=== PATIENT | female | born 1950 | race Caucasian/White ===

== ENCOUNTER 2018-10-02 01:37 | Emergency (ER) | payer MEDICARE, OTHER ==
[2014-02-20 08:23] VITALS: Wt 113.4 kg
[~2018-10-02 01:37] MED LIST: BIS10S PR; ENO100I SC; IBUP-136 PO; MOM PO; MULT-1381 PO; NONE CURRENTLY; PAIN MED; PER PO; RIV10 PO; RIVA20TA PO; WARF3TAB36 PO; [UNRECOGNIZED DRUG - OTHER] PO; [UNRECOGNIZED DRUG - OTHER] PO
--- NOTE | 2018-10-02 02:02 | ER Report ---
History and Physical Time Seen By MD: 01:50 Hx. of Stated Complaint: PT REPORTS NOSEBLEED THAT STARTED LAST NIGHT AT 22:00. HPI/ROS CHIEF COMPLAINT: Nosebleed HISTORY OF PRESENT ILLNESS: 68-year-old female presents ambulatory to the ER complaining of nosebleed out of her right nose since 10 PM last night. 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 Patient reports falling 1 week ago and injuring her nose. It bled for a short period of time in has not bled for 4 days. Tonight she blew her nose retiring to bed. The bleeding started. She's been unable to stop it. Her blood pressure is elevated on arrival. REVIEW OF SYSTEMS: Respiratory: No cough, no dyspnea. Cardiovascular: No chest pain, no palpitations. Gastrointestinal: No vomiting, no abdominal pain. Musculoskeletal: No back pain. Allergies: Coded Allergies: Penicillins (Verified Allergy, Intermediate, RASH, 10/02/18) hydromorphone (Unverified Adverse Reaction, Intermediate, NAUSEA AND VOMITING, 10/02/18) Home Meds Reported Medications Atorvastatin Calcium (LIPITOR) 40 Mg Tablet, 1 TAB PO HS, TAB 10/02/18 Rivaroxaban 20 Mg (XARELTO 20 MG) 20 Mg Tablet, 20 MG PO QDAY 02/11/14 Discontinued Reported Medications Rivaroxaban 20 Mg (XARELTO 20 MG) 20 Mg Tablet, 20 MG PO DAILY 02/20/14 Oxycodone/Acetaminophen (OXYCODONE/ACETAMINOPHEN 5MG/325 MG) 5 Mg/325 Mg Tab, 1- 2 TAB PO Q4-6H PRN for PAIN, #50 TAB 02/20/14 Multivitamin (ONCE DAILY) 1 Each Tablet, 1 EACH PO 02/11/14 Discontinued Scripts [Magnesium Hydroxide] 30 ML SUSP No Conflict Check, 30 ML PO Q8H PRN for CONSTIPATION Prov:ANTONELLA GUZMAN MD 02/20/14 Past Medical/Surgical History History of DVT, left colon and coagulation with Xarelto, hypertension Total right knee replacement Reviewed Nurses Notes: Yes Old Medical Records Reviewed: Yes Hx Smoking: No Hx Substance Use Disorder: No Hx Alcohol Use: No Constitutional Vital Sign - Last 24 Hours 10/02/18 10/02/18 10/02/18 10/02/18 01:43 01:43 02:07 02:22 Temp 98.4 Pulse 96 69 70 Resp 18 B/P (MAP) 169/96 (120) 169/96 Pulse Ox 94 93 94 O2 Delivery Room Air 10/02/18 10/02/18 10/02/18 10/02/18 02:37 02:38 02:43 02:58 Pulse 64 67 67 B/P (MAP) 131/82 (98) Pulse Ox 90 90 94 10/02/18 10/02/18 03:00 03:13 Pulse 69 B/P (MAP) 136/84 (101) Pulse Ox 94 Physical Exam Vital signs stable, slightly elevated blood pressure, afebrile, pulse ox normal General Appearance: The patient is alert, has no immediate need for airway protection and no current signs of toxicity. HEENT: Pupils equal and round no injection. TMs normal, right nares with emma bleeding, oropharynx with blood tainted posterior oropharynx Respiratory: Chest is non tender, lungs are clear to auscultation. Cardiac: regular rate and rhythm Gastrointestinal: Abdomen is soft and non tender, no masses, bowel sounds normal. Musculoskeletal: Neck: Neck is supple and non tender. Extremities have full range of motion and are non tender. Skin: No rashes or lesions. DIFFERENTIAL DIAGNOSIS: After history and physical exam differential diagnosis was considered for epistaxis, excessive anti-coagulation, nasal injury, hypertension Medical Decision Making ED Course/Re-evaluation ED Course Patient was admitted to an examination room. H&P was done. The differential diagnoses was considered. On clinical examination. Patient has bleeding from her right nares. Patient is on Zarontin all. Hemostasis will likely only be obtained with packing. A Rhino Rocket was inserted in the right nares and infiltrated with TX a 500 mg. Was taped to her right cheek. After approximately 30 minutes. Her blood pressure was rechecked and down significantly. Her epistaxis is controlled. She is advised to leave the packing in place for 3 days. Patient advised to follow-up with primary care to have it removed in 3 days or return to the ER. Decision to Disposition Date: Oct 02, 2018 Decision to Disposition Time: 02:06 Depart Departure Latest Vital Signs Vital Signs Date Time Temp Pulse Resp B/P (MAP) Pulse Ox O2 Delivery O2 Flow Rate FiO2 10/02/18 03:13 69 94 10/02/18 03:00 136/84 (101) 10/02/18 01:43 98.4 18 Room Air Impression: Primary Impression: Epistaxis Additional Impressions: Chronic anticoagulation Hypertension Condition: Improved Disposition: HOME OR SELF-CARE Patient Instructions: Nosebleed (ED) Additional Instructions: Leave nasal packing in for 3 days Follow-up with primary care to have it removed or urgent care,, you may also come to the emergency room to have your packing removed Problem Qualifiers Additional Impressions: Hypertension Hypertension type: essential hypertension Qualified Codes: I10 - Essential (primary) hypertension ARPAN LYON DO Oct 02, 2018 02:02
[2018-10-02] MEDS ORDERED: ATOR40TA24 PO (02:05)
[2018-10-02] MEDS ORDERED: ENT KIT ONE ×2 (02:10)
[2018-10-02] MEDS ORDERED: TRANEXAMIC AC 1000 MG/10ML SDV ONE ×2 (02:10)
[2018-10-02 03:00] VITALS: BP 136/84
== END 2018-10-02 03:22 | disposition home or self-care (01) ==
LOC: ER 02:05
DX: R04.0 Epistaxis (principal); Z79.01 Long term (current) use of anticoagulants; I10 Essential (primary) hypertension
CPT/HCPCS: 99282